=== PATIENT | male | born 1965 | race American Indian/Alaskan Native ===

== ENCOUNTER 2019-01-30 02:03 | Emergency (ER) | payer MEDICARE ==
[2019-01-30 02:14] VITALS: BP 118/82
[2019-01-30] MEDS ORDERED: IBUPROFEN 800 MG TAB PO ONE (02:49)
--- NOTE | 2019-01-30 02:55 | Emergency Department Report ---
ED Headache HPI - General Chief Complaint: Headache Stated Complaint: HEADACHE, PAIN IN EYES, HEARING LOSS Time Seen by Provider: 01/30/19 02:49 - History of Present Illness Initial Comments: 53-year-old -[place] male presents to the emergency room with headache and facial pressure and ear is muffled 2 days. Patient reports that he has been recently treated for sinus infection a couple weeks ago. Patient denies any fever chills no nausea no vomiting. Patient states his been taken Tylenol Sinus. Patient reports that he cannot have a decongestion as it causes palpitations. Patient reports that he was on doxycycline a couple a weeks ago. Patient reports he is HIV positive and is on antiretrovirals medication. Timing/Duration: other (2 days) Head Injury Location: frontal Associated Symptoms: facial pain, nasal congestion, sinus infection. denies: nasal drainage Allergies/Adverse Reactions: Allergies Sulfa (Sulfonamide Antibiotics) Allergy (Verified 04/13/18 08:49) Rash Home Medications: Ambulatory Orders Acetaminophen/Codeine [Tylenol /Codeine # 3 tab] 1 tab PO Q6H PRN #12 tab 04/10/18 DOXYCYCLINE Hyclate [Vibramycin CAP] 100 mg PO Q12HR #14 capsule 04/10/18 Ibuprofen [Motrin 800 MG tab] 800 mg PO Q8HR PRN #15 tablet 01/30/19 cephALEXin [Keflex] 500 mg PO Q8HR 10 Days #30 cap 01/30/19 ED Review of Systems ROS: Stated complaint: HEADACHE, PAIN IN EYES, HEARING LOSS Other details as noted in HPI Comment: All other systems reviewed and negative ED Past Medical Hx - Past Medical History Previous Medical History?: Yes Hx Hypertension: No Hx HIV: Yes - Surgical History Past Surgical History?: No - Social History Smoking Status: Never Smoker Substance Use Type: None - Medications Home Medications: Home Medications Medication Instructions Recorded Confirmed Last Taken Type Acetaminophen/Codeine [Tylenol 1 tab PO Q6H PRN #12 tab 04/10/18 Unknown Rx /Codeine # 3 tab] DOXYCYCLINE Hyclate [Vibramycin 100 mg PO Q12HR #14 capsule 04/10/18 Unknown Rx CAP] Ibuprofen [Motrin 800 MG tab] 800 mg PO Q8HR PRN #15 tablet 01/30/19 Unknown Rx cephALEXin [Keflex] 500 mg PO Q8HR 10 Days #30 cap 01/30/19 Unknown Rx ED Physical Exam - General Limitations: No Limitations General appearance: alert, in no apparent distress - Head Head exam: Present: atraumatic, normocephalic - Eye Eye exam: Present: normal appearance - ENT ENT exam: Present: mucous membranes moist, TM's normal bilaterally, other (maxillary and frontal sinus tenderness) - Neck Neck exam: Present: normal inspection, full ROM. Absent: tenderness - Respiratory Respiratory exam: Present: normal lung sounds bilaterally. Absent: respiratory distress - Cardiovascular Cardiovascular Exam: Present: regular rate, normal rhythm. Absent: systolic murmur, diastolic murmur, rubs, gallop - GI/Abdominal GI/Abdominal exam: Present: soft, normal bowel sounds - Rectal Rectal exam: Present: deferred - Extremities Exam Extremities exam: Present: normal inspection - Back Exam Back exam: Present: normal inspection - Neurological Exam Neurological exam: Present: alert, oriented X3 - Psychiatric Psychiatric exam: Present: normal affect, normal mood - Skin Skin exam: Present: warm, dry, intact, normal color. Absent: rash ED Course Vital Signs 01/30/19 02:07 Temperature 98.0 F Pulse Rate 82 Respiratory 20 Rate Blood Pressure 118/82 O2 Sat by Pulse 95 Oximetry ED Medical Decision Making - Medical Decision Making 53-year-old -[place] male presents to the emergency room with headache and facial pressure and ear is muffled 2 days. Patient reports that he has been recently treated for sinus infection a couple weeks ago. Patient denies any fever chills no nausea no vomiting. Patient states his been taken Tylenol Sinus. Patient reports that he cannot have a decongestion as it causes palpitations. Patient reports that he was on doxycycline a couple a weeks ago. Patient reports he is HIV positive and is on antiretrovirals medication. Patient will be given a prescription for Keflex instructed to use his Flonase every day and continues Afrin at night to help with the nasal congestion for sleep. Critical care attestation.: If time is entered above; I have spent that time in minutes in the direct care of this critically ill patient, excluding procedure time. ED Disposition Clinical Impression: Sinus infection Qualifiers: Sinusitis location: frontal Chronicity: acute Recurrence: recurrent Qualified Code(s): J01.11 - Acute recurrent frontal sinusitis Disposition: TO HOME OR SELFCARE Is pt being admited?: No Does the pt Need Aspirin: No Condition: Stable Instructions: Sinusitis (ED) Additional Instructions: Complete antibiotics as prescribed. Take pain medication as needed. Please use Flonase as prescribed daily and you can try Afrin at night. Follow-up with the ear nose and throat provider. Prescriptions: cephALEXin [Keflex] 500 mg PO Q8HR 10 Days #30 cap Ibuprofen [Motrin 800 MG tab] 800 mg PO Q8HR PRN #15 tablet PRN Reason: Pain , Severe (7-10) Referrals: PRIMARY CAREMD [Referring] - 3-5 Days SHIRIN VALENTIN MD [Staff Physician] - 3-5 Days
== END 2019-01-30 03:18 | disposition home or self-care (01) ==
LOC: ED 02:03
DX: J01.00 Acute maxillary sinusitis, unspecified (principal); J01.10 Acute frontal sinusitis, unspecified; Z88.2 Allergy status to sulfonamides; Z79.1 Long term (current) use of non-steroidal anti-inflammatories (NSAID); Z79.899 Other long term (current) drug therapy; Z21 Asymptomatic human immunodeficiency virus [HIV] infection status
CPT/HCPCS: 99282